=== PATIENT | male | born 1975 | race Caucasian/White ===

== ENCOUNTER 2020-09-23 13:51 | Emergency (ER) | payer BC, MEDICAID ==
[~2020-09-23] VITALS: Ht 193 cm; Wt 96.6 kg
[2020-09-23 13:52] VITALS: BP 119/86
[2020-09-23] MEDS ORDERED: ASPirin 81 mg TAB PO ONE (14:00)
[2020-09-23 14:24] LABS: Basophils # (auto) 0 10 ^3/uL (0-0.2); Monocytes # (auto) 0.5 10 ^3/uL (0-1.3); Neutrophils # (auto) 8.1 10 ^3/uL (1.6-8.6)
[2020-09-23 14:26] LABS: Basophils % (auto) 0.3 % (0.0-2.0); Eosinophils # (auto) 0 10 ^3/uL (0-0.8); Eosinophils % (auto) 0.4 % (0.0-7.0); Hematocrit 51.3 % (41.0-53.0); Hemoglobin 17.8 g/dL (13.5-17.5); Lymphocytes # (auto) 1.1 10 ^3/uL (0.4-5.4); Lymphocytes % (auto) 11.4 % (10.0-50.0); Mean Corpuscular Hemoglobin 29.9 pg (28.0-32.0); Mean Corpuscular Hgb Conc. 34.7 g/dL (32.0-36.0); Mean Corpuscular Volume 86.3 fL (80.0-100.0); Monocytes % (auto) 4.9 % (0.0-12.0); Red Blood Cells 5.95 10^6/uL (4.5-5.90); Red Cell Distribution Width 14.2 % (11.8-14.3); White Blood Cell 9.8 10^3/uL (4.4-10.8)
[2020-09-23 14:43] LABS: Albumin 4.1 g/dL (3.4-5.0); Anion Gap 6 (5-15); Calcium 10.1 mg/dL (8.5-10.1); Carbon Dioxide 28 mmol/L (21-32); Chloride 105 mmol/L (98-107); Glucose 118 mg/dL (74-106); Potassium 4.5 mmol/L (3.5-5.1); Sodium 139 mmol/L (136-145)
[2020-09-23 14:45] LABS: GFR African American 84 mL/min; GFR Non-African American 70 mL/min
[2020-09-23 14:50] LABS: Alanine Aminotransferase 35 U/L (16-61); Alkaline Phosphatase 98 U/L (45-117); Aspartate Aminotransferase 14 U/L (15-37); Bilirubin, Total 0.3 mg/dL (0.2-1.0); Total Protein 8.4 g/dL (6.4-8.2)
[2020-09-23 15:15] LABS: BUN/Creatinine Ratio 9.1; Blood Urea Nitrogen 11 mg/dL (7-18)
[2020-09-23] MEDS ORDERED: SODIUM CHLORIDE 0.9% 1,000 ML IV ONE ×2 (16:00)
[2020-09-23 16:16] LABS: Alcohol, Urine < 3.0 mg/dL (0-10); Amphetamine Screen, Urine NEGATIVE (NEGATIVE); Benzodiazephine Screen, Urine NEGATIVE (NEGATIVE); Cannabinoid Screen, Urine NEGATIVE (NEGATIVE); Cocaine Screen, Urine NEGATIVE (NEGATIVE); Opiate Scree,Urine NEGATIVE (NEGATIVE); Phencyclidine Screen, Urine NEGATIVE (NEGATIVE)
[2020-09-23 16:23] LABS: Barbiturate Scree,Urine NEGATIVE (NEGATIVE)
== END 2020-09-23 16:58 | disposition home or self-care (01) ==
LOC: ER 13:51
DX: R07.89 Other chest pain (principal); Z88.0 Allergy status to penicillin
CPT/HCPCS: 36415; 71045; 80053; 80307; 84443; 84484; 85025; 85049; 93005

== ENCOUNTER 2021-05-08 18:21 | Emergency (ER) | payer MEDICAID ==
[~2021-05-08] VITALS: Ht 193 cm; Wt 54.4 kg
[2021-05-08 20:10] LABS: Basophils # (auto) 0 10 ^3/uL (0-0.2); Basophils % (auto) 0.4 % (0.0-2.0); Eosinophils # (auto) 0.1 10 ^3/uL (0-0.8); Eosinophils % (auto) 0.5 % (0.0-7.0); Hematocrit 44.1 % (41.0-53.0); Hemoglobin 15.3 g/dL (13.5-17.5); Lymphocytes # (auto) 1.3 10 ^3/uL (0.4-5.4); Lymphocytes % (auto) 11.8 % (10.0-50.0); Mean Corpuscular Hemoglobin 29.5 pg (28.0-32.0); Mean Corpuscular Hgb Conc. 34.6 g/dL (32.0-36.0); Mean Corpuscular Volume 85.1 fL (80.0-100.0); Monocytes # (auto) 0.4 10 ^3/uL (0-1.3); Monocytes % (auto) 3.3 % (0.0-12.0); Neutrophils # (auto) 9.1 10 ^3/uL (1.6-8.6); Red Blood Cells 5.18 10^6/uL (4.5-5.90); White Blood Cell 10.9 10^3/uL (4.4-10.8)
[2021-05-08 20:39] LABS: BUN/Creatinine Ratio 10.1; Calcium 9.1 mg/dL (8.5-10.1)
[2021-05-08 20:42] LABS: Bilirubin, Total 0.4 mg/dL (0.2-1.0); Total Protein 7.3 g/dL (6.4-8.2)
[2021-05-08 21:04] LABS: Urine Bacteria NONE SEEN /hpf (None Seen); Urine Blood Negative /uL (Negative); Urine Specific Gravity 1.012 (1.001-1.035); Urine WBC <1 /hpf (0 - 3)
[2021-05-08 21:20] LABS: Alcohol, Urine < 3.0 mg/dL (0-10); Amphetamine Screen, Urine NEGATIVE (NEGATIVE); Barbiturate Scree,Urine NEGATIVE (NEGATIVE); Benzodiazephine Screen, Urine NEGATIVE (NEGATIVE); Cannabinoid Screen, Urine NEGATIVE (NEGATIVE); Cocaine Screen, Urine NEGATIVE (NEGATIVE); Opiate Scree,Urine NEGATIVE (NEGATIVE); Phencyclidine Screen, Urine NEGATIVE (NEGATIVE)
[2021-05-08 21:51] VITALS: BP 160/90
== END 2021-05-08 21:13 | disposition home or self-care (01) ==
LOC: ER 18:21
DX: R55 Syncope and collapse (principal); I10 Essential (primary) hypertension; Z88.0 Allergy status to penicillin
CPT/HCPCS: 36415; 70450; 80053; 80307; 81001; 85025; 93005

== ENCOUNTER 2024-12-07 04:27 | Emergency (ER) | payer BC, MEDICAID ==
[~2024-12-07] VITALS: Ht 193 cm; Wt 88.0 kg
--- NOTE | 2024-12-07 06:30 | ED.PDOC ---
History of Present Illness HPI Comments 49-year-old male with PMHx HTN presents with a chief complaint of generalized weakness, fatigue, syncope, and sweats x 2 months intermittently. Patient states that he "has not been feeling good for awhile now". Patient states that he had a syncopal episode at home last night. Denies hitting his head or having an active headache. Patient reports also that he has lost weight unintentionally. Patient denies any active chest pain, abdominal pain, N/V/D. Chief Complaint: General Weakness Time Seen by MD: 06:21 Primary Care Provider: NONE Reviewed Notes: Medications, Allergies Allergies: Coded Allergies: Penicillins (Verified Allergy, Unknown, 09/23/20) Information Source: Patient Mode of Arrival: Ambulatory Severity: Moderate Timing: Hours Duration: Since onset Prehospital treatment: None Past Medical History PAST MEDICAL HISTORY: HTN Surgical History (Other): Ankle Repair Family History Family History: Reviewed,noncontributory to illness Social History Smoker: Non-Smoker Alcohol: Occasionally Drugs: Denies Drug Use Lives In: Home Constitutional: reports: fatigue, sweats, weakness; denies: chills, diaphoresis, fever, malaise, others EENTM: denies: blurred vision, double vision, ear bleeding, ear discharge, ear drainage, ear pain, ear ringing, eye pain, eye redness, hearing loss, mouth pain, mouth swelling, nasal discharge, nose bleeding, nose congestion, nose pain, photophobia, tearing, throat pain, throat swelling, voice changes, others Respiratory: denies: cough, hemoptysis, orthopnea, SOB at rest, shortness of breath, SOB with excertion, stridor, wheezing, others Cardiovascular: reports: syncope; denies: chest pain, dizzy spells, diaphoresis, Dyspnea on exertion, edema, irregular heart beat, left arm pain, lightheadedness, palpitations, PND, others Gastrointestinal: denies: abdomen distended, abdominal pain, blood streaked bowels, constipated, diarrhea, dysphagia, difficulty swallowing, hematemesis, melena, nausea, poor appetite, poor fluid intake, rectal bleeding, rectal pain, vomiting, others Genitourinary: denies: burning, dysuria, flank pain, frequency, hematuria, incontinence, penile discharge, penile sore, pain, testicle pain, testicle swelling, urgency, others Neurological: denies: dizziness, fainting, headache, left sided numbness, left sided weakness, numbness, paresthesia, pre-existing deficit, right sided numbness, right sided weakness, seizure, speech problems, tingling, tremors, weakness, others Musculoskeletal: denies: back pain, gout, joint pain, joint swelling, muscle pain, muscle stiffness, neck pain, others Integumetry: denies: bruises, change in color, change in hair/nails, dryness, laceration, lesions, lumps, rash, wounds, others Allergic/Immunocompromised: denies: Difficulty Healing, Frequent Infections, Hives, Itching, others Hematologic/Lymphatic: denies: anemia, blood clots, easy bleeding, easy br uising, swollen glands, others Endocrine: denies: excessive hunger, excessive sweating, excessive thirst, excessive urination, flushing, intolerance to cold, intolerance to heat, unexplained weight gain, unexplained weight loss, others Psychiatric: denies: anxiety, bipolar disorder, depression, hopeless, panic disorder, schizophrenia, sleepless, suicidal, others All Other Systems: Reviewed and Negative Physical Exam General Appearance: Moderate Distress, Normal HEENT: Normal ENT Inspection, Pharynx Normal, TMs Normal Neck: Full Range of Motion, Non-Tender, Normal, Normal Inspection Respiratory: Chest Non-Tender, Lungs Clear, No Accessory Muscle Use, No Respiratory Distress, Normal Breath Sounds Cardiovascular: No Edema, No JVD, No Murmur, No Gallop, Normal Peripheral Pulses, Regular Rate/Rhythm Breast Exam: Deferred Gastrointestinal: No Organomegaly, Non Tender, No Pulsatile Mass, Normal Bowel Sounds, Soft Genitalia: Deferred Pelvic: Deferred Rectal: Deferred Extremities: No calf tenderness, Normal capillary refill, Normal inspection, Normal range of motion, Non-tender, No pedal edema Musculoskeletal : Apperance: Normal Neurologic: Alert, manufacturing planner II-XII nml as Tested, No Motor Deficits, Normal Affect, Normal Mood, No Sensory Deficits Cerebellar Function: Normal Reflexes: Normal Skin: Dry, Normal Color, Warm Peripheral Pulses: 3+ Radial (R), 3+ Radial (L) Lymphatic: No Adenopathy Was a procedure done? Was a procedure done?: No Differential Dx Considerations may include: Gastroenteritis Electrolyte imbalance X-Ray, Labs, Meds, VS Vital Signs Date Time Temp Pulse Resp B/P (MAP) Pulse Ox O2 Delivery O2 Flow Rate FiO2 12/07/24 04:29 97.7 75 18 172/112 99 97.7 Patient alert. Possible syncope. Blood pressure elevated. Was given clonidine. Significant other states that he has been having lumps on his chest. Possibly will need CT. Establish intravenous access. Was given fluids. Explained to the patient. Continue monitoring. Time of 1ST Reevaluation: 06:51 Reevaluation 1ST: Unchanged Patient Education/Counseling: Diagnosis, Treatment, Need For Follow Up Family Education/Counseling: Diagnosis, Treatment, Need For Follow Up SEPSIS Sepsis Screen Date sepsis recognized/suspect: Dec 07, 2024 Time Sepsis recognized/suspect: 434 Recent Procedure: No On Antibiotic Therapy: No Respiratory Rate >20: No Heart Rate >90: No Temp<36 C (96.8 F) or >38.3 C: No SBP <90 or MAP <65 mmHG: No New Acute Mental Status Change: No Is the patient on CPAP, BIPAP,: No Physician Orders Complete Blood Count (12/07/24 06:24) Comprehensive Metabolic Panel (12/07/24 06:24) Chest Portable (12/07/24 06:24) Urinalysis (12/07/24 06:24) Sodium Chloride 0.9% (12/07/24 06:30) Troponin-I Hs (12/07/24 06:24) Head Without Contrast (12/07/24 06:24) Vital Signs Date Time Temp Pulse Resp B/P (MAP) Pulse Ox O2 Delivery O2 Flow Rate FiO2 12/07/24 04:29 97.7 75 18 172/112 99 97.7 Departure 1 Departure Time of Disposition: 06:34 Impression: Primary Impression: Syncopal episodes Qualified Codes: R55 - Syncope and collapse Additional Impression: Hypertensive emergency Disposition: ADMITTED INPATIENT Admit to: Med Surg Condition: Guarded Critical Care Note Critical Care Time?: Yes (90 min-critical care time only) Critical care comment: Monitoring blood pressure Stability Stability form required: No Heart Score Heart Score: Heart Score Response (Comments) Value History N/A 0 EKG N/A 0 Age N/A 0 Risk Factors N/A 0 Troponin N/A 0 Total 0 I personally scribed for RCO PADILLA MD ([email or web address]) on 12/07/24 at 06:30. Electronically submitted by Bradley Calderón ([email or web address]). ROC PADILLA MD Dec 07, 2024 06:30
[2024-12-07 06:46] VITALS: BP 138/79; PULSE 66; RESP 16; TEMP 98.6; O2SAT 97
[2024-12-07 06:52] LABS: Hematocrit 41.2 % (41.0-53.0); Hemoglobin 14.2 g/dL (13.5-17.5); Mean Corpuscular Hemoglobin 29.6 pg (28.0-32.0); Mean Corpuscular Volume 86.1 fL (80.0-100.0); Nucleated Red Blood Cells % 0.1 %
[2024-12-07 07:08] LABS: Alanine Aminotransferase 18 U/L (7-40); Albumin 4.6 g/dL (3.2-4.8); Alkaline Phosphatase 86 U/L (46-116); Anion Gap 8 (5-15); BUN/Creatinine Ratio 8.0 (10.0-20.0); Bilirubin, Total 0.4 mg/dL (0.2-1.0); Calcium 9.1 mg/dL (8.7-10.4); Carbon Dioxide 27 mmol/L (20-31); Chloride 104 mmol/L (98-107); Glucose 94 mg/dL (74-106); Potassium 4.0 mmol/L (3.5-5.1); Sodium 139 mmol/L (136-145); Total Protein 7.0 g/dL (5.7-8.2)
[2024-12-07 07:10] LABS: Blood Urea Nitrogen 9 mg/dL (9-23)
[2024-12-07] MEDS: SODIUM CHLORIDE 0.9% 1,000 ML IV ONE (07:10)
[2024-12-07 07:14] LABS: Urine Protein, UAD Negative (Negative)
--- NOTE | 2024-12-07 07:48 | DVH ---
CHEST RADIOGRAPH Indication: sob Technique: Single frontal view of the chest was obtained COMPARISON: CHEST PORTABLE on DOS: 09/23/20 FINDINGS: Lines and Tubes: None Lungs: Mild congestion Pleura: No effusion. No pneumothorax. Cardiomediastinal contours: Unremarkable Bones: Unremarkable IMPRESSION: Increased interstital prominence. This may represent pulmonary vascular congestion and/or viral pneum onia. Clinical correlation advised.
--- NOTE | 2024-12-07 07:54 | DVH ---
CT HEAD WITHOUT CONTRAST Indication: syncope EXAM DATE: 12/07/2024 07:13 AM COMPARISON: HEAD WITHOUT CONTRAST on DOS: 05/08/21 TECHNIQUE: CT of the head without intravenous contrast. FINDINGS: There is no intracranial hemorrhage. There is no extra-axial fluid, mass, mass effect or midline shif t. The ventricles are midline and normal in size. Basilar cisterns are patent. Rosario-white differentia tion is maintained. The paranasal sinuses and mastoids are well-pneumatized. Imaged portion of the orbits are unremarkabl e. IMPRESSION: No intracranial hemorrhage or mass effect.
--- NOTE | 2024-12-09 15:53 | ECG ---
[facility] Test Date: 2024-12-07 Test Time: 04:37:54 Pat Name: KORI PELAYO Department: ED Room: Gender: M [employer]: stella : 1975 Requested By: ROC PADILLA Order Number: [id number] Reading MD: Jamal Scherer Measurements Intervals Ragland Rate: 75 P: 68 NH: 190 QRS: 80 QRSD: 101 T: -20 QT: 369 QTc: 413 Interpretive Statements Sinus rhythm Borderline T abnormalities, inferior leads Baseline wander in lead(s) I,III,aVR,aVL Electronically Signed On 12-09-2024 16:34:07 PDT by Jamal Scherer Please click the below link to view image of tracing.
== END 2024-12-07 08:49 | disposition left against medical advice (07) ==
LOC: EEVIPCON 04:27 → ER 04:27
DX: R55 Syncope and collapse (principal); I16.1 Hypertensive emergency; I10 Essential (primary) hypertension; Z88.0 Allergy status to penicillin
CPT/HCPCS: 36415; 70450; 71045; 80053; 81001; 84484; 85025; 93005; 96360; 99285; J7030